=== PATIENT | female | born 1945 | race African-American/Black ===

== ENCOUNTER → 2017-12-20 | Outpatient (CLI) | payer BC | END | disposition home or self-care (01) | LOC: KCIC 14:24 | DX: M16.12 Unilateral primary osteoarthritis, left hip (principal); M47.896 Other spondylosis, lumbar region; M41.86 Other forms of scoliosis, lumbar region; G89.29 Other chronic pain; Z96.641 Presence of right artificial hip joint | CPT/HCPCS: 72110; 72202 ==

== ENCOUNTER 2021-03-12 19:00 | Emergency (ER) | payer BC ==
[~2021-03-12] VITALS: Ht 165.1 cm; Wt 104.5 kg
--- NOTE | 2021-03-12 19:21 | PHYS DOC ---
General Adult EDM: Chief Complaint: DIZZY/LIGHT HEADED HPI: HPI: Patient is a 75 year old female past medical history hypertension presents for evaluation of dizziness. Patient states she has had dizziness since October 21. Episodes have become more frequent since onset. Patient describes the dizzine ss as a spinning sensation worse with movement and relieved with rest. Patient states at times she has associated left neck and head pain. Patient states that time she also has nausea but has not vomited. On exam patient is alert noted x4 she has no focal neurological deficits. She arrived by private vehicle. She is not accompanied by anybody at this time patient ambulated into the ER with a normal steady gait. Review of Systems: Review of Systems: Constitutional: Denies fever or chills. [] Eyes: Denies change in visual acuity. [] HENT: Denies nasal congestion or sore throat. [] Respiratory: Denies cough or shortness of breath. [] Cardiovascular: Denies chest pain or edema. [] GI: Denies abdominal pain, nausea, vomiting, bloody stools or diarrhea. [] : Denies dysuria. [] Musculoskeletal: Denies back pain or joint pain. [] Integument: Denies rash. [] Neurologic: Positive headache, focal weakness or sensory changes. [Positive dizziness] Endocrine: Denies polyuria or polydipsia. [] Lymphatic: Denies swollen glands. [] Psychiatric: Denies depression or anxiety. [] Heart Score: C/O Chest Pain: N/A Risk Factors: Risk Factors: DM, Current or recent (<one month) smoker, HTN, HLP, family history of CAD, obesity. Risk Scores: Score 0 - 3: 2.5% MACE over next 6 weeks - Discharge Home Score 4 - 6: 20.3% MACE over next 6 weeks - Admit for Clinical Observation Score 7 - 10: 72.7% MACE over next 6 weeks - Early Invasive Strategies Physical Exam: PE: Constitutional: Well developed, well nourished, no acute distress, non-toxic appearance. [] HENT: Normocephalic, atraumatic, bilateral external ears normal, oropharynx moist, no oral exudates, nose normal. [] Eyes: PERRLA, EOMI, conjunctiva normal, no discharge. [] Neck: Normal range of motion, no tenderness, supple, no stridor. [] Cardiovascular:Heart rate regular rhythm, no murmur [] Lungs & Thorax: Bilateral breath sounds clear to auscultation [] Abdomen: Bowel sounds normal, soft, no tenderness, no masses, no pulsatile masses. [] Skin: Warm, dry, no erythema, no rash. [] Back: No tenderness, no CVA tenderness. [] Extremities: No tenderness, no cyanosis, no clubbing, ROM intact, no edema. [] Neurologic: Alert and oriented X 3, normal motor function, normal sensory function, no focal deficits noted. [] Psychologic: Affect normal, judgement normal, mood normal. [] EKG: EKG: [] EKG performed at 1918hrs heart rate [address] T elevation no ST depression no acute NV Radiology/Procedures: Radiology/Procedures: [] Impression: FINDINGS: No focal parenchymal lesion or hemorrhage is identified. There is no midline shift or sulcal effacement. Mild patchy hypodensity in the periventricular white matter. No acute vascular territory infarction is identified. Weldon-white distinction is preserved. The ventricular system is within normal limits without compression hydrocephalus. The basal cisterns are well maintained. The visualized portions of the paranasal sinuses and mastoid air cells are well- pneumatized. No acute fractures. IMPRESSION: Mild small vessel ischemic change, technically age indeterminate without recent prior imaging. Exposure: One or more of the following in the visualized dose reduction techniques were utilized for this examination: 1. Automated exposure control 2. Adjustment of the MA and/or KV according to patient size Use of iterative of reconstructive technique Course & Med Decision Making: Course & Med Decision Making Pertinent Labs and Imaging studies reviewed. (See chart for details) [] Patient was evaluated for chief complaint. Work-up consisted of radiologic imaging and laboratory analysis. Results reviewed and discussed with patient. Patient with a history of CLL therefore chronic elevated WBC. CT head negative. Treatment included IV fluids and meclizine. Patient reevaluated she states she feels much better. Will discharge patient home on meclizine. Dragon Disclaimer: Roxy Disclaimer: This electronic medical record was generated, in whole or in part, using a voice recognition dictation system. Departure Departure Impression: Primary Impression: Dizziness Disposition: 01 HOME / SELF CARE / HOMELESS Condition: IMPROVED Referrals: TRAVIS CHEATHAM MD (PCP) Patient Instructions: Dizziness Scripts Meclizine Hcl (MECLIZINE HCL) 25 Mg Tablet 1 TAB PO PRN TID, #30 TAB Prov: MISAEL VEGA DO 03/12/21 MISAEL VEGA DO Mar 12, 2021 19:21
[2021-03-12 19:56] LABS: BASO # 0.2 x10^3/uL (0.0-0.2); BASO % 1 % (0-3); EOS # 0.1 x10^3/uL (0.0-0.7); EOS % 1 % (0-3); HEMATOCRIT 39.5 % (36.0-47.0); HEMOGLOBIN 12.8 g/dL (12.0-15.5); LYMPH # 15.2 x10^3/uL (1.0-4.8); LYMPH % 82 % (24-48); MEAN CORPUSCULAR HEMOGLOBIN 28 pg (25-35); MEAN CORPUSCULAR HGB CONC 32 g/dL (31-37); MEAN CORPUSCULAR VOLUME 86 fL (79-100); MONO # 0.5 x10^3/uL (0.0-1.1); MONO % 3 % (0-9); NEUT # 2.5 x10^3/uL (1.8-7.7); NEUT % 13 % (31-73); PLATELET COUNT 127 x10^3/uL (140-400); RED BLOOD COUNT 4.62 x10^6/uL (3.50-5.40); RED CELL DISTRIBUTION WIDTH 14.2 % (11.5-14.5); WHITE BLOOD COUNT 18.5 x10^3/uL (4.0-11.0)
[2021-03-12] MEDS ORDERED: MECLIZINE HCL 12.5 MG TABLET. PO ONE (20:00)
[2021-03-12 20:04] LABS: CALCIUM 9.2 mg/dL (8.5-10.1); CREATININE 0.7 mg/dL (0.6-1.0); GFR 98.7; POTASSIUM 4.2 mmol/L (3.5-5.1)
[2021-03-12 20:10] LABS: ALBUMIN 4.2 g/dL (3.4-5.0); ALBUMIN/GLOBULIN RATIO 1.8 (1.0-1.7); TOTAL BILIRUBIN 0.2 mg/dL (0.2-1.0); TOTAL PROTEIN 6.6 g/dL (6.4-8.2)
[2021-03-12] MEDS ORDERED: IV NORMAL SALINE 1000ML BAG 1,000 ML IV ONE ×2 (20:15)
--- NOTE | 2021-03-12 20:16 | RAD ---
Exam: CT head INDICATION: Dizzy, headache TECHNIQUE: Sequential axial images through the head were obtained without the administration of IV co ntrast. Comparisons: None FINDINGS: No focal parenchymal lesion or hemorrhage is identified. There is no midline shift or sulcal effaceme nt. Mild patchy hypodensity in the periventricular white matter. No acute vascular territory infarction i s identified. Weldon-white distinction is preserved. The ventricular system is within normal limits without compression hydrocephalus. The basal cisterns are well maintained. The visualized portions of the paranasal sinuses and mastoid air cells are well-pneumatized. No acute fractures. IMPRESSION: Mild small vessel ischemic change, technically age indeterminate without recent prior imaging. Exposure: One or more of the following in the visualized dose reduction techniques were utilized for this examination: 1. Automated exposure control 2. Adjustment of the MA and/or KV according to patient size Use of iterative of reconstructive technique Electronically signed by: Zana Magana MD (03/12/2021 8:14 PM) [facility]
[2021-03-12 20:26] LABS: % ATYL 5 % (0-0); % LYMPHS 76 % (24-48); % MONOS 1 % (0-10); % SEGS 18 % (35-66); PLT ESTIMATE DECREASED (ADEQUATE); SMUDGE CELLS PRESENT
[2021-03-12] MEDS ORDERED: VANCOMYCIN 2 GM in IV NORMAL SALINE 500ML BAG 500 ML IV ONE (20:30)
[2021-03-12] MEDS ORDERED: MECL-75 PO (20:54)
[2021-03-12 20:55] LABS: BILIRUBIN,URINE NEGATIVE (NEG); CLARITY,URINE CLEAR; COLOR,URINE YELLOW; NITRITE,URINE NEGATIVE (NEG); PROTEIN,URINE NEGATIVE (NEG-TRACE); UROBILINOGEN,URINE 0.2 mg/dL (0.2 mg/dL)
[2021-03-12 21:03] LABS: BACTERIA,URINE 0 /HPF (0-FEW); RBC,URINE 0 /HPF (0-2)
[2021-03-12 21:25] VITALS: BP 156/83
--- NOTE | 2021-03-13 00:05 | EKG ---
[facility] [address] [place] [address] Test Date: 2021-03-12 Test Time: 19:18:03 Pat Name: KERMIT NARAYAN Department: Room: Gender: F [employer]el [employer] Wood: : 1945 Requested By: MISAEL VEGA Order Number: [id number] Reading MD: Measurements Intervals [place] Rate: 78 P: 0 GA: 202 QRS: -18 QRSD: 78 T: 70 QT: 370 QTc: 425 Interpretive Statements SINUS RHYTHM ATRIAL PREMATURE COMPLEX(ES) LEFTWARD AXIS R-S TRANSITION ZONE IN V LEADS DISPLACED TO THE LEFT OTHERWISE NORMAL ECG RI6.01 No previous ECG available for comparison
== END 2021-03-12 21:25 | disposition home or self-care (01) ==
LOC: ER 19:00
DX: R42 Dizziness and giddiness (principal); R20.2 Paresthesia of skin; R51.9 Headache, unspecified; I10 Essential (primary) hypertension
CPT/HCPCS: 36415; 70450; 80053; 81001; 84484; 85007; 85025; 87086; 93005; 96360; 99285; J7030; J8597

== ENCOUNTER → 2021-07-20 | Outpatient (CLI) | payer BC ==
[~2021-07-20] MED LIST: IOHEXOL 300 MG/ML 100ML VIAL. IV ONE; MECL-75 PO
--- NOTE | 2021-07-20 15:22 | KCIC ---
PQRS Compliance Statement: One or more of the following individualized dose reduction techniques were utilized for this examinat ion: 1. Automated exposure control 2. Adjustment of the mA and/or kV according to patient size 3. Use of iterative reconstruction technique CT HEAD WITHOUT AND WITH IV CONTRAST 07/20/2021 10:05 AM PQRS Compliance Statement: One or more of the following individualized dose reduction techniques were utilized for this examinat ion: 1. Automated exposure control 2. Adjustment of the mA and/or kV according to patient size 3. Use of iterative reconstruction technique INDICATION: Preauricular mass. Dizziness, vertigo and blurred vision COMPARISON: CT head 03/12/2021 TECHNIQUE: Multiple axial CT images of the head were obtained from skull base through the vertex with out intravenous contrast. FINDINGS: Head: There is hyperostosis frontalis interna. Ventricles, sulci and basal cisterns are within normal limit s. There is no hydrocephalus. Weldon-white matter differentiation is normal. There is no acute intracra nial hemorrhage. There is no mass, mass effect or midline shift. Posterior fossa is normal in appeara nce. No suspicious enhancement is identified. Visualized portions of the orbits are normal. Paranasal sinuses are well aerated. Mastoid air cells a re well aerated. Scalp and calvaria are normal. IMPRESSION: No acute intracranial hemorrhage. No suspicious enhancement. Electronically signed by: Kiley Hall MD (07/20/2021 3:20 PM) [id number]
== END ==
LOC: KCIC CT 09:43
PROVIDERS: ATTEND Nurse Practitioner Family
DX: R22.0 Localized swelling, mass and lump, head (principal); M85.2 Hyperostosis of skull
CPT/HCPCS: 70470; 82565; Q9967